=== PATIENT | female | born 1975 | race Native Hawaiian/Other Pacific Islander ===

== ENCOUNTER 2016-05-01 13:26 | Emergency (ER) | payer OTHER ==
[~2016-05-01] VITALS: Ht 157.5 cm; Wt 56.7 kg
[2016-05-01 14:04] LABS: PLATELET COUNT 330 K/uL (152-353)
[2016-05-01 14:45] LABS: POTASSIUM 3.7 mmol/L (3.6-5.2); SODIUM 135 mmol/L (136-145)
[2016-05-01 18:34] VITALS: BP 158/99; TEMP 97.7
== END 2016-05-01 18:34 | disposition home or self-care (01) ==
LOC: ED 13:26
DX: N83.291 Other ovarian cyst, right side (principal); N76.4 Abscess of vulva; K57.30 Diverticulosis of large intestine without perforation or abscess without bleeding
CPT/HCPCS: 36415; 80053; 85027; 99283; Q9963

== ENCOUNTER 2016-10-25 10:39 | Observation (INO) | payer OTHER ==
[~2016-10-25] VITALS: Ht 157.5 cm; Wt 58.2 kg
[2016-10-25 11:00] VITALS: BP 138/86; TEMP 98
[2016-10-25 11:40] LABS: PLATELET COUNT 293 K/uL (152-353)
[2016-10-25 11:48] LABS: SODIUM 138 mmol/L (136-145)
[2016-10-25 13:12] VITALS: BP 124/84
[2016-10-25 14:09] VITALS: BP 133/74
[2016-10-25 15:12] VITALS: BP 142/67
[2016-10-25 16:56] VITALS: BP 123/71; TEMP 98; Ht 157.5 cm; Wt 58.2 kg
[2016-10-25 20:00] VITALS: BP 131/69; TEMP 98.6
[2016-10-26] VITALS: BP 128/79; TEMP 97.9
[2016-10-26 04:00] VITALS: BP 138/80; TEMP 98
[2016-10-26 06:27] LABS: POTASSIUM 3.3 mmol/L (3.6-5.2); SODIUM 139 mmol/L (136-145)
[2016-10-26 06:35] LABS: PLATELET COUNT 211 K/uL (152-353)
[2016-10-26 08:00] VITALS: BP 128/73; TEMP 98.6
[2016-10-26 12:00] VITALS: BP 124/67; TEMP 98.1
--- NOTE | 2016-10-26 14:32 | NUR ---
RX CALLED TO [facility]. IV D/C'd. NO REDNESS OR EDEMA. DISCHARGE INSTRUCTION SIGNED AND GIVEN. Pt. EXIT OUT OF FRONT ENTRANCE AMBULATING.
== END 2016-10-26 14:32 | disposition home or self-care (01) ==
LOC: ED 10:39 → MED/SURG 13:00
PROVIDERS: ADMIT Family Medicine
DX: R11.2 Nausea with vomiting, unspecified (principal); I10 Essential (primary) hypertension; E83.51 Hypocalcemia; E87.6 Hypokalemia; D72.828 Other elevated white blood cell count; R10.32 Left lower quadrant pain
CPT/HCPCS: 36415; 74022; 80048; 80053; 81000; 82550; 85027; 96374; 99220; 99284; G0378; J2405

== ENCOUNTER 2016-12-08 08:17 | Outpatient (CLI) | payer OTHER | END 2016-12-08 08:28 | disposition short-term general hospital (02) | LOC: AMB 08:17 | DX: R10.12 Left upper quadrant pain (principal); R10.13 Epigastric pain | CPT/HCPCS: A0425; A0429 ==

== ENCOUNTER 2016-12-08 08:28 | Emergency (ER) | payer OTHER ==
[~2016-12-08] VITALS: Ht 157.5 cm; Wt 68.0 kg
[2016-12-08 09:15] LABS: PLATELET COUNT 326 K/uL (152-353)
[2016-12-08 09:24] LABS: SODIUM 136 mmol/L (136-145)
[2016-12-08 12:25] VITALS: BP 119/70; TEMP 98
== END 2016-12-08 12:40 | disposition home or self-care (01) ==
LOC: ED 08:28
DX: R10.84 Generalized abdominal pain (principal); R11.2 Nausea with vomiting, unspecified
CPT/HCPCS: 36415; 80053; 81000; 82150; 83690; 85027; 96365; 96374; 99284; J2405; Q9963

== ENCOUNTER 2017-03-28 11:16 | Emergency (ER) | payer OTHER ==
[~2017-03-28] VITALS: Ht 157.5 cm; Wt 59.0 kg
[2017-03-28 11:20] VITALS: TEMP 99.1
[2017-03-28] MEDS ORDERED: ACID REDUCER150 M1 PO (11:29)
[2017-03-28 12:35] LABS: PLATELET COUNT 160 K/uL (152-353)
[2017-03-28 12:42] LABS: POTASSIUM 4.5 mmol/L (3.6-5.2)
[2017-03-28 13:15] VITALS: BP 126/78
== END 2017-03-28 13:17 | disposition home or self-care (01) ==
LOC: ED 11:16
PROVIDERS: Family Medicine
DX: J11.1 Influenza due to unidentified influenza virus with other respiratory manifestations (principal)
CPT/HCPCS: 36415; 80053; 85027; 87804; 96372; 99283; J1885

== ENCOUNTER 2018-06-16 08:48 | Outpatient (CLI) | payer OTHER ==
[~2018-06-16 08:48] MED LIST: ACID REDUCER150 M1 PO
== END 2018-06-16 08:56 | disposition short-term general hospital (02) ==
LOC: AMB 08:48
DX: R07.89 Other chest pain (principal); R06.02 Shortness of breath
CPT/HCPCS: A0425; A0427

== ENCOUNTER 2018-06-16 09:02 | Emergency (ER) | payer OTHER ==
[~2018-06-16] VITALS: Ht 157.5 cm; Wt 54.4 kg
[2018-06-16 09:06] VITALS: BP 160/104
[2018-06-16 09:08] VITALS: TEMP 98.1
[2018-06-16 09:28] LABS: PLATELET COUNT 304 K/uL (152-353)
[2018-06-16 09:35] LABS: POTASSIUM 4.2 mmol/L (3.6-5.2); SODIUM 143 mmol/L (136-145)
== END 2018-06-16 11:00 | disposition home or self-care (01) ==
LOC: ED 09:02
PROVIDERS: Emergency Medicine
DX: R07.89 Other chest pain (principal)
CPT/HCPCS: 80053; 82550; 82553; 83690; 83735; 84484; 84702; 85027; 93005; 96374; 99284; J1885

== ENCOUNTER 2018-08-31 15:45 | Emergency (ER) | payer OTHER ==
[~2018-08-31] VITALS: Ht 157.5 cm; Wt 54.4 kg
[2018-08-31 19:58] VITALS: BP 136/85; TEMP 97.8
== END 2018-08-31 19:58 | disposition home or self-care (01) ==
LOC: ED 15:45
DX: R20.8 Other disturbances of skin sensation (principal); T50.905A Adverse effect of unspecified drugs, medicaments and biological substances, initial encounter
CPT/HCPCS: 99281

== ENCOUNTER 2019-06-08 10:37 | Emergency (ER) | payer OTHER ==
[~2019-06-08] VITALS: Ht 157.5 cm; Wt 54.4 kg
[2019-06-08 11:34] LABS: PLATELET COUNT 274 K/uL (152-353)
[2019-06-08 11:43] LABS: POTASSIUM 3.7 mmol/L (3.6-5.2)
[2019-06-08 13:23] VITALS: BP 132/75; TEMP 97.9
== END 2019-06-08 13:24 | disposition home or self-care (01) ==
LOC: ED 10:37
PROVIDERS: Family Medicine
DX: J02.9 Acute pharyngitis, unspecified (principal); K11.20 Sialoadenitis, unspecified
CPT/HCPCS: 36415; 80053; 80307; 81000; 85027; 87651; 99283

== ENCOUNTER 2019-11-10 11:59 | Emergency (ER) | payer OTHER ==
[~2019-11-10] VITALS: Ht 157.5 cm; Wt 54.4 kg
[2019-11-10 12:08] VITALS: TEMP 98.5
[2019-11-10 13:11] VITALS: BP 130/84
== END 2019-11-10 13:12 | disposition home or self-care (01) ==
LOC: ED 11:59
DX: N75.0 Cyst of Bartholin's gland (principal)
CPT/HCPCS: 96372; 99283; J0696; J1885

== ENCOUNTER 2023-03-21 16:27 | Emergency (ER) | payer OTHER ==
[~2023-03-21] VITALS: Ht 157.5 cm; Wt 61.2 kg
[2023-03-21 16:35] VITALS: TEMP 98.6
[2023-03-21] MEDS ORDERED: TORADOL 60MG/2ML INJ IM ONE ×2 (17:12→17:22)
[2023-03-21 17:41] LABS: PLATELET COUNT 280 K/uL (152-353)
[2023-03-21 17:52] LABS: POTASSIUM 4.4 mmol/L (3.6-5.2)
[2023-03-21 18:35] VITALS: BP 144/68
== END 2023-03-21 18:58 | disposition home or self-care (01) ==
LOC: ED 16:27
PROVIDERS: Family Medicine
DX: R10.12 Left upper quadrant pain (principal); R10.32 Left lower quadrant pain; K57.92 Diverticulitis of intestine, part unspecified, without perforation or abscess without bleeding
CPT/HCPCS: 80053; 81002; 82150; 83690; 85027; 99283; J1885